=== PATIENT | male | born 1935 | race Caucasian/White ===

== ENCOUNTER 2018-07-14 09:06 | Emergency (ER) | payer OTHER ==
[2018-07-14] MEDS ORDERED: NITROGLYCERIN 0.4 MG TAB SL ONE (09:11)
[2018-07-14] MEDS ORDERED: ASPIRIN 81 MG CHEWABLE CTB ONE ×2 (09:11→09:25)
[2018-07-14] MEDS ORDERED: ASPIRIN 81 MG CHEWABLE CTB PO ONE (09:15)
[2018-07-14 09:29] LABS: BASOPHILS % (AUTO) 1 % (0-3); EOSINOPHILS % (AUTO) 2 % (0-9); HEMATOCRIT 46 % (39-53); HEMOGLOBIN 14.6 gm/dl (13.5-17.7); LYMPHOCYTES % (AUTO) 36.5 % (10-50); MEAN CORPUSCULAR HEMOGLOBIN 29.8 pg (27.0-32.0); MEAN CORPUSCULAR HGB CONC 31.8 gm/dl (32.0-36.0); MEAN CORPUSCULAR VOLUME 94 fL (80-100); MONOCYTES % (AUTO) 11.8 % (0-12); NEUTROPHILS % (AUTO) 48.3 % (37-80)
[2018-07-14] MEDS ORDERED: SODIUM CHLORIDE 0.9% 1000ML 1,000 ML IV ONE (09:31)
[2018-07-14 09:38] VITALS: TEMP 97.6
[2018-07-14 09:38] LABS: INR 1.04 (0.86-1.12)
[2018-07-14 09:54] LABS: ALBUMIN 3.4 gm/dl (3.4-5.0); BILIRUBIN,TOTAL 0.3 mg/dl (0.2-1.0); CALCIUM 8.8 mg/dl (8.5-10.1); CARBON DIOXIDE 28.4 mEq/L (21-32); CREATININE 0.98 mg/dl (0.80-1.30); POTASSIUM 4.4 mMol/L (3.5-5.1); THYROID STIMULATING HORMONE 1.765 uIU/ml (0.358-3.740); TOTAL PROTEIN 7.5 gm/dl (6.4-8.2)
[2018-07-14 10:00] LABS: TROP I 0.03 ng/ml (0.000-0.056)
[2018-07-14] MEDS ORDERED: RIVAROXABAN 10 MG TAB PO SCH (11:00)
[2018-07-14] MEDS ORDERED: RIVAROXABAN 10 MG TAB PO ONE (11:25)
[2018-07-14 12:45] VITALS: O2SAT 98
[2018-07-14 12:46] VITALS: BP 137/91; PULSE 90; RESP 13
[2018-07-15] MEDS ORDERED: METOPROLOL TARTRATE 25 MG TAB PO SCH (09:00)
== END 2018-07-14 11:45 | disposition home or self-care (01) | DRG 310 ==
LOC: ED 09:06
DX: I48.91 Unspecified atrial fibrillation (principal); R42 Dizziness and giddiness; Z79.899 Other long term (current) drug therapy
CPT/HCPCS: 71045; 80053; 84443; 84484; 85025; 85378; 85610; 93005; 96365; 99284; 99285; A9270-GY